=== PATIENT | female | born 1990 | race Caucasian/White ===

== ENCOUNTER 2018-03-24 14:43 | Emergency (ER) | payer OTHER ==
[2018-03-24] MEDS ORDERED: KETOROLAC TROMETHAMINE 60 MG/2 ML VIAL IM ONE (14:52)
[2018-03-24 14:53] VITALS: BP 105/58
--- NOTE | 2018-03-24 14:54 | ED Physician Documentation ---
General Adult - HISTORIAN Historian: patient - HPI Stated Complaint: menstrual pain Chief Complaint: General Adult Onset: days ago (1) Timing: still present Severity: moderate Further Comments: yes (Pt is a 27 yo female with menstrual cramping and pain that has been getting worse with every cylce since 2013 when pt had BTL. Pt had been able to tx this with otc meds, but recently this has not been sufficient. Pt has been intending to f/u with entry level sales associate, but has not done this yet.) - ROS CONST: no problems EYES/ENT: none CVS/RESP: none GI/: nausea, other (menstrual pain/cramping) MS/SKIN/LYMPH: none - PAST HX Past History: other (BTL, appendectomy, cholecystectomy) Allergies/Adverse Reactions: Allergies Allergy/AdvReac Type Severity Reaction Status Date / Time Penicillins Allergy Intermediate Hives Verified 03/24/18 14:53 Home Medications: Ambulatory Orders Medication Instructions Recorded Acetaminophen/Pamabrom [Midol 1 each PO 03/24/18 [place]] - SOCIAL HX Smoking History: cigarettes - FAMILY HX Family History: No - VITAL SIGNS Vital Signs: Vital Signs Temp Pulse Resp BP Pulse Ox 110/60 03/21/14 20:36 - REVIEWED ASSESSMENTS Nursing Assessment Reviewed: Yes Vitals Reviewed: Yes Progress - Progress Progress: Toradol 60 mg IM improved f/u pcp, entry level sales associate ED Results Lab/Radiology - Orders Orders: ED Orders Category Date Time Status Ketorolac Tromethamine [Toradol] Med 03/24/18 14:52 Once 60 mg IM NOW ONE General Adult Physical Exam - PHYSICAL EXAM GENERAL APPEARANCE: moderate distress EENT: pharynx normal NECK: normal inspection, supple RESPIRATORY: no resp distress, chest non-tender, breath sounds normal CVS: reg rate & rhythm, heart sounds normal ABDOMEN: soft, no organomegaly, normal bowel sounds, tenderness (mid abdominal) BACK: normal inspection, no CVA tenderness, CVA tenderness (R) SKIN: warm/dry, normal color EXTREMITIES: non-tender, normal range of motion, no evidence of injury NEURO: oriented X3, motor nml, sensation nml Discharge Clincal Impression: menstrual pain Referrals: Elyssa Crawford FOAM CHARGER [Primary Care Provider] - Disposition: 01 HOME, SELF-CARE Decision to Admit: NO Decision Time: 15:30
== END 2018-03-24 15:26 | disposition home or self-care (01) ==
LOC: ED 14:43
DX: N94.6 Dysmenorrhea, unspecified (principal)
CPT/HCPCS: 96372; 99282; J1885

== ENCOUNTER 2018-07-03 12:26 | Emergency (ER) | payer OTHER ==
[2018-07-03] MEDS: ONDANSETRON HCL/PF 4 MG/ 2ML VIAL IVP ONE (12:40)
[2018-07-03] MEDS: 0.9 % SODIUM CHLORIDE 1,000 ML IV ONE ×2 (12:40→12:47)
--- NOTE | 2018-07-03 12:41 | ED Physician Documentation ---
General Adult - HISTORIAN Historian: patient - HPI Stated Complaint: Right flank/right groin pain Chief Complaint: General Adult Onset: days ago (1) Timing: still present Severity: moderate Further Comments: yes (Pt is a 28 yo female with R flank pain, n/v, dysuria that started yesterday. Pain radiates to groin. Family hx kidney stones (no personal hx).) - ROS CONST: no problems EYES/ENT: none CVS/RESP: none GI/: abdominal pain (R flank) MS/SKIN/LYMPH: none - PAST HX Past History: other (cholecystectomy, appendectomy, hysterectomy) Allergies/Adverse Reactions: Allergies Allergy/AdvReac Type Severity Reaction Status Date / Time Penicillins Allergy Intermediate Hives Verified 07/03/18 12:41 Home Medications: Ambulatory Orders Medication Instructions Recorded NK 07/03/18 - SOCIAL HX Smoking History: cigarettes - FAMILY HX Family History: Yes (fam hx kidney stones) - VITAL SIGNS Vital Signs: Vital Signs Temp Pulse Resp BP Pulse Ox 98.4 F 68 19 144/88 99 07/03/18 12:35 07/03/18 12:35 07/03/18 12:35 07/03/18 12:35 07/03/18 12:35 - REVIEWED ASSESSMENTS Nursing Assessment Reviewed: Yes Vitals Reviewed: Yes Progress - Progress Progress: CT abd/pelvis: CT the abdomen and pelvis is performed without oral or intravenous administration of contrast. Sagittal and coronal reconstructions are performed by the technologist. Findings: Visualized lung bases are clear. The liver and spleen demonstrate normal attenuation without focal defect. Gallbladder is surgically absent. There is no pancreatic or adrenal abnormality. Left kidney and collecting system are unremarkable. There is right hydronephrosis with distention renal pelvis and calyces. Right ureter is distended into the pelvis. There is a 6 mm stone in the right ureter just proximal to the ureterovesicle junction. Additional pelvic calcifications consistent with phleboliths. There is no free fluid in the pelvis or abdomen. Bilateral ovarian follicles are demonstrated. The uterus is surgically absent. IMPRESSION: 1. 6 mm distal right ureteral calculus with right obstructive uropathy. 2. Postoperative changes. NS 1 L IVF Toradol 30 mg IV Zofran 4 mg IV Dilaudid 1 mg IV D/C instructions: Rx Percocet (5/325). Take one or two tablets by mouth every 4 to 6 hours as needed for moderate to severe pain. Rx Zofran 4 mg ODT. Take one every 8 hours as needed for nausea/vomiting. Rx Tamsulosin 0.4 mg. Take one by mouth once daily for 5 days or until kidney stone passes. Rx Bactrim DS. Take one every 12 hours for 7 days. Return to ER or follow up with a Urologist, as at [facility], if stone does not pass in 48 to 72 hours. ED Results Lab/Radiology - Orders Orders: ED Orders Category Date Time Status 0.9 % Sodium Chloride [Normal Saline] 1,000 ml Med 07/03/18 12:28 Discontinued IV .STK-MED Ketorolac Tromethamine [Toradol] Med 07/03/18 12:28 Discontinued 30 mg .ROUTE .STK-MED ONE Ondansetron HCl/Pf [Zofran 4 mg/2 ml] Med 07/03/18 12:28 Discontinued 4 mg .ROUTE .STK-MED ONE General Adult Physical Exam - PHYSICAL EXAM GENERAL APPEARANCE: moderate distress EENT: pharynx normal NECK: normal inspection, supple RESPIRATORY: no resp distress, chest non-tender, breath sounds normal CVS: reg rate & rhythm, heart sounds normal ABDOMEN: soft, normal bowel sounds, tenderness (R abd) BACK: normal inspection, CVA tenderness (R) SKIN: warm/dry, normal color EXTREMITIES: non-tender, normal range of motion, no evidence of injury NEURO: oriented X3, motor nml, sensation nml Discharge Clincal Impression: Kidney stone Referrals: Elyssa Crawford FNP [Primary Care Provider] - Condition: Stable Disposition: 01 HOME, SELF-CARE Decision to Admit: NO Decision Time: 13:44
[2018-07-03] MEDS: KETOROLAC TROMETHAMINE 30 MG/1ML VIAL IVP ONE (12:42)
[2018-07-03] MEDS: ONDANSETRON HCL/PF 4 MG/ 2ML VIAL ONE (12:47)
[2018-07-03] MEDS: KETOROLAC TROMETHAMINE 30 MG/1ML VIAL ONE (12:47)
[2018-07-03 12:57] LABS: BASOPHILS % 0.4 (0.0-1.5); EOSINOPHILS % 1.3 % (0.0-6.8); MEAN CORPUSCULAR HEMOGLOBIN 31.1 pg (28.0-34.0); MEAN CORPUSCULAR VOLUME 91.8 fl (80.0-100.0); MONOCYTES % 3.5 % (0.0-11.0); NEUTROPHILS # 6.6 # k/uL (1.4-7.7)
[2018-07-03] MEDS: HYDROmorphone HCL/PF 1 MG/ML DISP.SYRIN IM ONE (13:06)
[2018-07-03] MEDS: HYDROmorphone HCL/PF 2 MG/ML DISP.SYRIN ONE (14:02)
[2018-07-03 14:09] VITALS: BP 100/56
[2018-07-03 16:56] LABS: APPEARANCE,URINE CLOUDY (CLEAR); COLOR,URINE YELLOW (YELLOW)
[2018-07-03 16:57] LABS: OCCULT BLOOD,URINE 2+ (NEGATIVE); UROBILINOGEN URINE 0.2 Eu (0.2-1.0)
--- NOTE | 2018-07-03 18:47 | Diagnostic Imaging Report ---
FREDDIE GARZA [facility] [address] [facility] [address] [place], [place]. [address] Report Submission Date: Jul 03, 2018 1:23:40 PM CDT Patient Study Name: MUSHTAQ POWELL Date: Jul 03, 2018 12:53:05 PM CDT Modality Type: CT\SR Gender: F Description: CT ABD PELVIS W/O CO : 90 Institution: [facility] Physician: FREDDIE GARZA CT of the abdomen and pelvis without contrast Clinical history: Right flank pain, worsening since yesterday. </TECHNIQUE/> CT the abdomen and pelvis is performed without oral or intravenous administration of contrast. Sagittal and coronal reconstructions are performed by the technologist. Findings: Visualized lung bases are clear. The liver and spleen demonstrate normal attenuation without focal defect. Gallbladder is surgically absent. There is no pancreatic or adrenal abnormality. Left kidney and collecting system are unremarkable. There is right hydronephrosis with distention renal pelvis and calyces. Right ureter is distended into the pelvis. There is a 6 mm stone in the right ureter just proximal to the ureterovesicle junction. Additional pelvic calcifications consistent with phleboliths. There is no free fluid in the pelvis or abdomen. Bilateral ovarian follicles are demonstrated. The uterus is surgically absent. </IMPRESSION/> 1. 6 mm distal right ureteral calculus with right obstructive uropathy. 2. Postoperative changes. Electronically signed on Jul 03, 2018 1:23:40 PM CDT by: Mario URIOSTEGUI
== END 2018-07-03 14:06 | disposition home or self-care (01) ==
LOC: ED 12:26
DX: N20.0 Calculus of kidney (principal)
CPT/HCPCS: 74176; 80053; 81002; 82565; 83690; 85025; J1170; J1885; J2405; J7030; 96365; 96372; 96375; 99284; S1016